=== PATIENT | female | born 1970 | race Caucasian/White ===

== ENCOUNTER 2022-04-24 18:24 | Emergency (ER) | payer OTHER ==
[~2022-04-24] VITALS: Ht 160 cm; Wt 69.4 kg
[~2022-04-24 18:24] MED LIST: ACETAMINOPHEN-1 EAC2 PO; CYCLOBENZAPRINE10 MG PO; INDOMETHACIN50 M1 PO
[2022-04-24] MEDS ORDERED: MACROBID 100 M100 MG (19:27)
[2022-04-24] MEDS ORDERED: PROTONIX40 MG PO (19:27)
[2022-04-24] MEDS ORDERED: FLAGYL375 MG PO (19:28)
== END 2022-04-25 03:02 | disposition home or self-care (01) ==
LOC: ER 18:24
DX: R07.89 Other chest pain (principal)

== ENCOUNTER → 2022-08-14 12:44 | Outpatient (CLI) | payer OTHER ==
[~2022-08-14 12:44] MED LIST changes: +FLAGYL375 MG PO; +MACROBID 100 M100 MG; +PROTONIX40 MG PO
== END | disposition home or self-care (01) ==
LOC: MAMO-SONO 12:44
PROVIDERS: ATTEND Obstetrics & Gynecology
DX: Z12.31 Encounter for screening mammogram for malignant neoplasm of breast (principal); N60.11 Diffuse cystic mastopathy of right breast; N60.12 Diffuse cystic mastopathy of left breast

== ENCOUNTER 2022-10-11 07:20 | Outpatient (CLI) | payer OTHER | END 2022-10-11 07:21 | disposition home or self-care (01) | LOC: NUCLEAR 07:20 | PROVIDERS: ATTEND Internal Medicine Cardiovascular Disease | DX: M19.90 Unspecified osteoarthritis, unspecified site (principal) | CPT/HCPCS: 78315; A9503 ==